=== PATIENT | male | born 1965 | race Caucasian/White ===

== ENCOUNTER 2018-01-10 05:23 | Emergency (ER) | payer OTHER ==
[~2018-01-10] VITALS: Ht 177.8 cm; Wt 81.6 kg
[2018-01-10 05:30] VITALS: BP_SYST 162
[2018-01-10] MEDS ORDERED: MAGNESIUM CITRATE 300 ML ORAL SOLUTION PO ONE (06:15)
[2018-01-10] MEDS ORDERED: KETOROLAC TROMETHAMINE 60 MG/2 ML VIAL IM ONE (06:30)
[2018-01-10] MEDS ORDERED: LACTULOSE 20 GM/30 ML UDC PO ONE (06:30)
[2018-01-10 08:05] VITALS: BP_SYST 133
== END 2018-01-10 08:05 | disposition home or self-care (01) ==
LOC: SED 05:23
DX: K59.00 Constipation, unspecified (principal); R03.0 Elevated blood-pressure reading, without diagnosis of hypertension
CPT/HCPCS: 71045; 74021; 96372; 99284; J1885